=== PATIENT | female | born 1940 | race Two or more races ===

== ENCOUNTER 2017-07-03 10:00 | Outpatient (CLI) | payer MEDICARE, OTHER ==
[~2017-07-03 10:00] MED LIST: AMPH20TA3 PO; DULO30CA2 PO; GABA300C PO; ZOLP10TA2 PO
== END 2017-07-03 23:59 | disposition home or self-care (01) ==
LOC: WOU 10:00
PROVIDERS: ATTEND Specialist
DX: E11.52 Type 2 diabetes mellitus with diabetic peripheral angiopathy with gangrene (principal); E11.622 Type 2 diabetes mellitus with other skin ulcer; E11.42 Type 2 diabetes mellitus with diabetic polyneuropathy; L97.313 Non-pressure chronic ulcer of right ankle with necrosis of muscle; L97.811 Non-pressure chronic ulcer of other part of right lower leg limited to breakdown of skin; F17.210 Nicotine dependence, cigarettes, uncomplicated
CPT/HCPCS: A6402; A6452; G0463

== ENCOUNTER 2017-07-08 13:46 | Outpatient (CLI) | payer MEDICARE, OTHER ==
[2017-07-08 14:43] LABS: BASOPHILS % (AUTO) 0.7 % (0.0-2.0); EOSINOPHILS # (AUTO) 0.1 /CMM (0.0-0.7); EOSINOPHILS % (AUTO) 3.1 % (0.0-6.0); HEMATOCRIT 45 % (33-45); HEMOGLOBIN 14.9 g/dL (11.5-14.8); LYMPHOCYTES # (AUTO) 1.2 /CMM (0.8-4.8); LYMPHOCYTES % (AUTO) 26.3 % (20.0-44.0); MEAN CORPUSCULAR HEMOGLOBIN 34 PG (26.0-33.0); MEAN CORPUSCULAR HGB CONC 33 g/dl (31.0-36.0); MEAN CORPUSCULAR VOLUME 101 fL (82-100); MONOCYTES # (AUTO) 0.5 /CMM (0.1-1.30); MONOCYTES % (AUTO) 10.2 % (2.0-12.0); NEUTROPHILS # (AUTO) 2.9 /CMM (1.8-8.9); NEUTROPHILS % (AUTO) 59.7 % (43.0-81.0); PLATELET COUNT (AUTO) 256 /CMM (150-450); RDW COEFFICIENT OF VARIATION 13.1 (11.5-15.0); RED BLOOD CELL COUNT(AUTO) 4.44 MIL/uL (4.0-5.2); WHITE BLOOD COUNT (AUTO) 4.8 K/uL (4.3-11.0)
[2017-07-08 16:07] LABS: PREALBUMIN 21.9 MG/DL (18.0-35.7)
== END 2017-07-08 23:59 | disposition home or self-care (01) ==
LOC: LAB 13:46
PROVIDERS: ATTEND Specialist
DX: M86.9 Osteomyelitis, unspecified (principal)
CPT/HCPCS: 36415; 84134-TC; 85025-TC; 85652-TC; 86140-TC

== ENCOUNTER 2017-07-10 13:00 | Outpatient (CLI) | payer MEDICARE, OTHER | END 2017-07-10 23:59 | disposition home or self-care (01) | LOC: WOU 13:00 | PROVIDERS: ATTEND Specialist | DX: E11.622 Type 2 diabetes mellitus with other skin ulcer (principal); E11.52 Type 2 diabetes mellitus with diabetic peripheral angiopathy with gangrene; E11.42 Type 2 diabetes mellitus with diabetic polyneuropathy; L97.313 Non-pressure chronic ulcer of right ankle with necrosis of muscle; L97.812 Non-pressure chronic ulcer of other part of right lower leg with fat layer exposed; F17.210 Nicotine dependence, cigarettes, uncomplicated | CPT/HCPCS: 11042; A6402; A6452 ==

== ENCOUNTER 2017-07-24 10:50 | Outpatient (CLI) | payer MEDICARE, OTHER | END 2017-07-24 23:59 | disposition home or self-care (01) | LOC: WOU 10:50 | PROVIDERS: ATTEND Specialist | DX: E11.622 Type 2 diabetes mellitus with other skin ulcer (principal); L97.312 Non-pressure chronic ulcer of right ankle with fat layer exposed; E11.42 Type 2 diabetes mellitus with diabetic polyneuropathy; E11.51 Type 2 diabetes mellitus with diabetic peripheral angiopathy without gangrene; Z87.891 Personal history of nicotine dependence | CPT/HCPCS: 11042; A6402 ==

== ENCOUNTER 2017-07-31 10:15 | Outpatient (CLI) | payer MEDICARE, OTHER | END 2017-07-31 23:59 | disposition home or self-care (01) | LOC: WOU 10:15 | PROVIDERS: ATTEND Specialist | DX: E11.622 Type 2 diabetes mellitus with other skin ulcer (principal); L97.322 Non-pressure chronic ulcer of left ankle with fat layer exposed; E11.51 Type 2 diabetes mellitus with diabetic peripheral angiopathy without gangrene; E11.42 Type 2 diabetes mellitus with diabetic polyneuropathy; F17.210 Nicotine dependence, cigarettes, uncomplicated | CPT/HCPCS: A6209; A6402; G0463 ==

== ENCOUNTER 2017-08-07 13:30 | Outpatient (CLI) | payer MEDICARE, OTHER | END 2017-08-07 23:59 | disposition home or self-care (01) | LOC: WOU 13:30 | PROVIDERS: ATTEND Specialist | DX: E11.622 Type 2 diabetes mellitus with other skin ulcer (principal); L97.313 Non-pressure chronic ulcer of right ankle with necrosis of muscle; L97.812 Non-pressure chronic ulcer of other part of right lower leg with fat layer exposed; E11.51 Type 2 diabetes mellitus with diabetic peripheral angiopathy without gangrene; E11.42 Type 2 diabetes mellitus with diabetic polyneuropathy; T86.828 Other complications of skin graft (allograft) (autograft) | CPT/HCPCS: A6209; A6402; G0463 ==

== ENCOUNTER 2017-08-14 13:00 | Outpatient (CLI) | payer MEDICARE, OTHER | END 2017-08-14 23:59 | disposition home or self-care (01) | LOC: WOU 13:00 | PROVIDERS: ATTEND Specialist | DX: E11.622 Type 2 diabetes mellitus with other skin ulcer (principal); L97.313 Non-pressure chronic ulcer of right ankle with necrosis of muscle; E11.42 Type 2 diabetes mellitus with diabetic polyneuropathy; E11.51 Type 2 diabetes mellitus with diabetic peripheral angiopathy without gangrene; T86.828 Other complications of skin graft (allograft) (autograft); F17.210 Nicotine dependence, cigarettes, uncomplicated | CPT/HCPCS: A6402; G0463 ==

== ENCOUNTER 2017-08-16 14:29 | Outpatient (CLI) | payer MEDICARE, OTHER | END 2017-08-17 23:59 | disposition home or self-care (01) | LOC: RAD 14:29 | PROVIDERS: ATTEND Specialist | DX: I70.0 Atherosclerosis of aorta (principal); M47.894 Other spondylosis, thoracic region; R54 Age-related physical debility | CPT/HCPCS: 71046 ==

== ENCOUNTER 2017-08-28 11:15 | Outpatient (CLI) | payer MEDICARE, OTHER | END 2017-08-28 23:59 | disposition home or self-care (01) | LOC: WOU 11:15 | PROVIDERS: ATTEND Specialist | DX: T86.828 Other complications of skin graft (allograft) (autograft) (principal); E11.51 Type 2 diabetes mellitus with diabetic peripheral angiopathy without gangrene; E11.622 Type 2 diabetes mellitus with other skin ulcer; E11.42 Type 2 diabetes mellitus with diabetic polyneuropathy; L97.313 Non-pressure chronic ulcer of right ankle with necrosis of muscle | CPT/HCPCS: A6209; A6402; G0463 ==

== ENCOUNTER 2017-09-04 10:00 | Outpatient (CLI) | payer MEDICARE, OTHER | END 2017-09-04 23:59 | disposition home or self-care (01) | LOC: WOU 10:00 | PROVIDERS: ATTEND Specialist | DX: E11.622 Type 2 diabetes mellitus with other skin ulcer (principal); L97.313 Non-pressure chronic ulcer of right ankle with necrosis of muscle; L97.812 Non-pressure chronic ulcer of other part of right lower leg with fat layer exposed; E11.42 Type 2 diabetes mellitus with diabetic polyneuropathy; E11.51 Type 2 diabetes mellitus with diabetic peripheral angiopathy without gangrene; T86.828 Other complications of skin graft (allograft) (autograft); F17.210 Nicotine dependence, cigarettes, uncomplicated | CPT/HCPCS: A6209; A6402; G0463 ==

== ENCOUNTER 2017-09-11 10:15 | Outpatient (CLI) | payer MEDICARE, OTHER | END 2017-09-11 23:59 | disposition home or self-care (01) | LOC: WOU 10:15 | PROVIDERS: ATTEND Specialist | DX: E11.622 Type 2 diabetes mellitus with other skin ulcer (principal); L97.313 Non-pressure chronic ulcer of right ankle with necrosis of muscle; L97.812 Non-pressure chronic ulcer of other part of right lower leg with fat layer exposed; E11.51 Type 2 diabetes mellitus with diabetic peripheral angiopathy without gangrene; E11.42 Type 2 diabetes mellitus with diabetic polyneuropathy; T86.828 Other complications of skin graft (allograft) (autograft); F17.210 Nicotine dependence, cigarettes, uncomplicated | CPT/HCPCS: A6209; A6402; G0463 ==

== ENCOUNTER 2017-09-18 10:16 | Outpatient (CLI) | payer MEDICARE, OTHER | END 2017-09-18 23:59 | disposition home or self-care (01) | LOC: WOU 10:16 | PROVIDERS: ATTEND Specialist | DX: T86.828 Other complications of skin graft (allograft) (autograft) (principal); E11.622 Type 2 diabetes mellitus with other skin ulcer; L97.312 Non-pressure chronic ulcer of right ankle with fat layer exposed; L97.812 Non-pressure chronic ulcer of other part of right lower leg with fat layer exposed; E11.51 Type 2 diabetes mellitus with diabetic peripheral angiopathy without gangrene; E11.42 Type 2 diabetes mellitus with diabetic polyneuropathy | CPT/HCPCS: A6402; G0463 ==

== ENCOUNTER 2017-09-25 10:20 | Outpatient (CLI) | payer MEDICARE, OTHER | END 2017-09-25 23:59 | disposition home or self-care (01) | LOC: WOU 10:20 | PROVIDERS: ATTEND Specialist | DX: E11.622 Type 2 diabetes mellitus with other skin ulcer (principal); L97.312 Non-pressure chronic ulcer of right ankle with fat layer exposed; Z87.891 Personal history of nicotine dependence; E11.42 Type 2 diabetes mellitus with diabetic polyneuropathy; T86.828 Other complications of skin graft (allograft) (autograft); E11.51 Type 2 diabetes mellitus with diabetic peripheral angiopathy without gangrene | CPT/HCPCS: A6253; A6402 ×2; G0463 ==

== ENCOUNTER 2017-10-02 10:17 | Outpatient (CLI) | payer MEDICARE, OTHER | END 2017-10-02 23:59 | disposition home or self-care (01) | LOC: WOU 10:17 | PROVIDERS: ATTEND Specialist | DX: E11.622 Type 2 diabetes mellitus with other skin ulcer (principal); L97.312 Non-pressure chronic ulcer of right ankle with fat layer exposed; T86.828 Other complications of skin graft (allograft) (autograft); E11.42 Type 2 diabetes mellitus with diabetic polyneuropathy; E11.51 Type 2 diabetes mellitus with diabetic peripheral angiopathy without gangrene; Z87.891 Personal history of nicotine dependence | CPT/HCPCS: A6253; A6402; G0463 ==

== ENCOUNTER 2017-10-30 09:15 | Outpatient (CLI) | payer MEDICARE, OTHER | END 2017-10-30 23:59 | disposition home or self-care (01) | LOC: WOU 09:15 | PROVIDERS: ATTEND Specialist | DX: T86.828 Other complications of skin graft (allograft) (autograft) (principal); E11.622 Type 2 diabetes mellitus with other skin ulcer; L97.313 Non-pressure chronic ulcer of right ankle with necrosis of muscle; E11.42 Type 2 diabetes mellitus with diabetic polyneuropathy; E11.51 Type 2 diabetes mellitus with diabetic peripheral angiopathy without gangrene; Z87.891 Personal history of nicotine dependence | CPT/HCPCS: 11042; A6402 ==

== ENCOUNTER 2018-02-20 11:31 | Inpatient (IN) | payer MEDICARE, OTHER ==
[~2018-02-20] VITALS: Ht 170.2 cm; Wt 59.0 kg
--- NOTE | 2018-02-20 11:45 | NUR ---
PT SELF PRESENTS TO ER BED 17 C/O GENERALIZED WEAKNESS WORSENING X 5 DAYS NOW. STATES SHE FEELS DEHYDRATED. DENIES PAIN. PLACED ON MONITOR. VSS. AWAITING MD SEVILLA.
--- NOTE | 2018-02-20 11:48 | NUR ---
DR LOMBARDO AT BEDSIDE FOR EVAL.
[2018-02-20] MEDS ORDERED: IV NS 0.9% 1,000 ML BAG IV ONE (12:00)
[2018-02-20 12:09] LABS: BASOPHILS # (AUTO) 0.2 /CMM (0.0-0.2); BASOPHILS % (AUTO) 2.3 % (0.0-2.0); EOSINOPHILS % (AUTO) 0.4 % (0.0-6.0); HEMATOCRIT 56 % (33-45); LYMPHOCYTES # (AUTO) 1.1 /CMM (0.8-4.8); LYMPHOCYTES % (AUTO) 11.7 % (20.0-44.0); MEAN CORPUSCULAR HEMOGLOBIN 33 PG (26.0-33.0); MEAN CORPUSCULAR HGB CONC 35 g/dl (31.0-36.0); MEAN CORPUSCULAR VOLUME 96 fL (82-100); MONOCYTES # (AUTO) 0.8 /CMM (0.1-1.30); MONOCYTES % (AUTO) 8.3 % (2.0-12.0); NEUTROPHILS # (AUTO) 7.6 /CMM (1.8-8.9); NEUTROPHILS % (AUTO) 77.3 % (43.0-81.0); PLATELET COUNT (AUTO) 215 /CMM (150-450); RDW COEFFICIENT OF VARIATION 13.2 (11.5-15.0); RED BLOOD CELL COUNT(AUTO) 5.82 MIL/uL (4.0-5.2); WHITE BLOOD COUNT (AUTO) 9.7 K/uL (4.3-11.0)
[2018-02-20 12:11] LABS: HEMOGLOBIN 19.4 g/dL (11.5-14.8)
[2018-02-20 12:19] LABS: ALANINE AMINOTRANSFERASE 33 U/L (12-78); ALBUMIN 4.5 g/dL (3.4-5.0); ALKALINE PHOSPHATASE 77 U/L (46-116); ASPARTATE AMINOTRANSFERASE 21 U/L (15-37); BILIRUBIN,DIRECT 0.2 mg/dL (0.0-0.2); BILIRUBIN,TOTAL 0.9 mg/dL (0.2-1.0); CALCIUM, SERUM 10.8 mg/dL (8.5-10.1); CARBON DIOXIDE 23 mmol/L (21-32); CHLORIDE 88 mmol/L (98-107); CREATININE 1.6 mg/dL (0.6-1.3); GLUCOSE 145 mg/dL (74-106); LIPASE 473 U/L (73-393); POTASSIUM 4.3 mmol/L (3.5-5.1); SODIUM SERUM 123 mmol/L (136-145); TOTAL PROTEIN, SERUM 8.6 g/dL (6.4-8.2)
[2018-02-20 12:21] LABS: TROPONIN I < 0.017 ng/mL (0.00-0.056)
[2018-02-20 12:22] LABS: UREA NITROGEN, BLOOD 85 mg/dL (7-18)
[2018-02-20] MEDS ORDERED: PENT400T12 PO (12:38)
[2018-02-20] MEDS ORDERED: CALC500T52 PO (12:38)
[2018-02-20] MEDS ORDERED: MAGN125C PO (12:38)
[2018-02-20] MEDS ORDERED: CEVI30CA4 PO (12:38)
[2018-02-20] MEDS ORDERED: VITA-339 PO (12:38)
--- NOTE | 2018-02-20 12:41 | NUR ---
BED 109
--- NOTE | 2018-02-20 12:50 | NUR ---
PT STILL UNABLE TO PROVIDE URINE SAMPLE AT THIS TIME.
[2018-02-20 13:12] LABS: BAND % (MANUAL) 1 % (0.0-5.0); EOSINOPHILS % (MANUAL) 1 % (0-4); LYMPHOCYTES % (MANUAL) 7 % (16-48); MONOCYTES % (MANUAL) 10 % (0-11.0); NEUTROPHILS % (MANUAL) 81 (42-76)
[2018-02-20] MEDS ORDERED: IV NS 0.9% 1,000 ML IV PRN (13:19)
[2018-02-20] MEDS ORDERED: ZOLPIDEM TARTRATE 5 MG TABLET PO PRN (13:30)
[2018-02-20] MEDS ORDERED: LORAZEPAM 0.5 MG TABLET PO PRN (13:30)
[2018-02-20] MEDS ORDERED: INSULIN REGULAR, HUMAN 100 UNIT/ML 3 ML VIAL SQ PRN (13:30)
[2018-02-20] MEDS ORDERED: Z GUARD REMEDY 2 OZ OINT TP PRN (13:30)
[2018-02-20] MEDS ORDERED: ZOLPIDEM TARTRATE 10 MG TABLET PO PRN (13:30)
[2018-02-20] MEDS ORDERED: DEXTROSE 50%-WATER 50 ML DISP.SYRIN IV PRN (13:30)
[2018-02-20] MEDS ORDERED: MAG HYDROX/AL HYDROX/SIMETH 30 ML UDC PO PRN (13:30)
[2018-02-20] MEDS ORDERED: ONDANSETRON HCL/PF 4 MG/2 ML VIAL IVP PRN (13:30)
[2018-02-20] MEDS ORDERED: MAGNESIUM HYDROXIDE 30 ML UDC PO PRN (13:30)
[2018-02-20] MEDS ORDERED: ACETAMINOPHEN 325 MG TABLET PO PRN (13:30)
[2018-02-20] MEDS ORDERED: HYDROCODONE/APAP 5/325MG 1 EACH TABLET PO PRN (13:30)
--- NOTE | 2018-02-20 13:33 | NUR ---
REPORT TO ANAND WHITTEN. PT AWAITING TRANSFER TO FLOOR.
[2018-02-20 14:50] VITALS: BP 140/73
--- NOTE | 2018-02-20 14:50 | NUR ---
RN NOTES RECEIVED PT FROM ER IN ROOM 109 , TELE STATUS , PT A/Ox4, ON RA , O2 SAT 94%, RESPIRATION EVEN AND UNLABORED, NO SOB NOTED, PT UP TO THE BATHROOM WITH MINIMUM ASSIST , VOIDING WELL, URINE SENT TO THE LAB, ON TELE HR IN 70'S, SR , L AC IV SITE G 20 CDI, NS AT 150CC/HR STARTED. ULCER NOTED TO R INNER ANKLE , PICTURE TAKEN AND PLACED IN THE CHART, WOUND CONSULT ORDERED , SR UP x2, CALL LIGHT WITHIN EASY REACH, BED LOCKED AND IN LOWEST POSITION, CONTINUE TO MONITOR .
[2018-02-20 14:54] LABS: TROPONIN I < 0.017 ng/mL (0.00-0.056)
[2018-02-20 14:58] LABS: AMYLASE 79 U/L (25-115); LIPASE 703 U/L (73-393)
[2018-02-20] MEDS: IV NS 0.9% 1,000 ML IV PRN (15:05)
[2018-02-20 15:06] LABS: IRON, SERUM 151 ug/dl (50-175); TOTAL IRON BINDING CAPACITY 444 ug/dl (250-450)
[2018-02-20] MEDS: PENTOXIFYLLINE 400 MG TABLET.SA PO SCH (16:20)
[2018-02-20] MEDS: BLOOD SUGAR DIAGNOSTIC 1 EACH STRIP IN SCH ×2 (16:27→21:31)
[2018-02-20 17:00] VITALS: BP 142/75
--- NOTE | 2018-02-20 18:30 | NUR ---
RN NOTES PT REMAINS THE SAME , IVF NS AT 150CC/HR RUNNING VIA L AC IV SITE , TOLERATING DIET WELL, VSS STABLE , WILL ENDOSE TO [facility] SHIFT NURSE FOR CARLOS .
[2018-02-20 19:12] LABS: OSMOLALITY,SERUM 293 mOS/kg (278-305)
[2018-02-20 19:14] LABS: CREATINE KINASE MB 2.8 ng/mL (0-3.6); THYROID STIMULATING HORMONE 2.267 uIU/mL (0.358-3.74)
[2018-02-20 19:14] LABS: APPEARANCE,URINE CLEAR (CLEAR); BILIRUBIN,URINE NEGATIVE (NEGATIVE); BLOOD, URINE NEGATIVE Ery/uL (NEGATIVE); COLOR,URINE YELLOW (YELLOW); KETONES,URINE NEGATIVE (NEGATIVE); LEUKOCYTE ESTERASE ,URINE NEGATIVE (NEGATIVE); NITRITE, URINE NEGATIVE (NEGATIVE); PH,URINE 5.5 (5.0-8.0); PROTEIN,URINE TRACE mg/dl (NEGATIVE); UGLUCOSE NEGATIVE (NEGATIVE); URINE SODIUM, RANDOM < 5 mmol/l (40-220); UROBILINOGEN,URINE 0.2 EU/dL (0.2)
[2018-02-20 19:18] LABS: OSMOLALITY,URINE 599 mOS/kg (340-1090)
[2018-02-20 20:00] VITALS: BP 143/62
[2018-02-20 20:55] LABS: BACTERIA,URINE Few /HPF (None Seen); SQUAMOUS EPITHELIAL CELL,UR Few /HPF (None Seen)
[2018-02-21] VITALS: BP 132/63
[2018-02-21] MEDS: IV NS 0.9% 1,000 ML IV PRN ×3 (02:04→21:44)
[2018-02-21 04:00] VITALS: BP 134/61
--- NOTE | 2018-02-21 07:00 | NUR ---
RN NOTES RECEIVED PT ON BED, A/Ox4, ON RA , NO SOB NOTED, RESPIRATION EVEN AND UNLABORED, NO SOB NOTED , ON TELE SR HR IN LOW 60'S , NS AT 150CC/HR RUNNING VIA L AC IV SITE G 20 , SITE CDI, SR UP x3, CALL LIGHT WITHIN EASY REACH, BED LOCKED AND IN LOWEST POSITION , CONTINUE TO MONITOR CLSOELY.
[2018-02-21 07:11] LABS: BASOPHILS % (AUTO) 0.2 % (0.0-2.0); EOSINOPHILS % (AUTO) 1.4 % (0.0-6.0); HEMATOCRIT 48 % (33-45); HEMOGLOBIN 17.1 g/dL (11.5-14.8); LYMPHOCYTES # (AUTO) 1.5 /CMM (0.8-4.8); MEAN CORPUSCULAR HEMOGLOBIN 34 PG (26.0-33.0); MEAN CORPUSCULAR HGB CONC 36 g/dl (31.0-36.0); MEAN CORPUSCULAR VOLUME 96 fL (82-100); MONOCYTES # (AUTO) 0.9 /CMM (0.1-1.30); NEUTROPHILS # (AUTO) 4.1 /CMM (1.8-8.9); NEUTROPHILS % (AUTO) 62.4 % (43.0-81.0); PLATELET COUNT (AUTO) 173 /CMM (150-450); RDW COEFFICIENT OF VARIATION 12.9 (11.5-15.0); RED BLOOD CELL COUNT(AUTO) 5.03 MIL/uL (4.0-5.2); WHITE BLOOD COUNT (AUTO) 6.6 K/uL (4.3-11.0)
[2018-02-21 07:23] LABS: CALCIUM, SERUM 8.9 mg/dL (8.5-10.1); CARBON DIOXIDE 27 mmol/L (21-32); CHLORIDE 100 mmol/L (98-107); CREATININE 0.7 mg/dL (0.6-1.3); GLUCOSE 97 mg/dL (74-106); MAGNESIUM 2.4 mg/dL (1.8-2.4); PHOSPHORUS 2.7 mg/dL (2.5-4.9); POTASSIUM 3.5 mmol/L (3.5-5.1); SODIUM SERUM 135 mmol/L (136-145); UREA NITROGEN, BLOOD 44 mg/dL (7-18)
[2018-02-21 08:00] VITALS: BP 109/61
[2018-02-21] MEDS: BLOOD SUGAR DIAGNOSTIC 1 EACH STRIP IN SCH ×4 (08:25→21:46)
[2018-02-21] MEDS: PENTOXIFYLLINE 400 MG TABLET.SA PO SCH ×3 (10:13→16:45)
[2018-02-21 12:00] VITALS: BP_SYST 108; BP_SYST 128; BP_DIAS 54; BP_DIAS 59
--- NOTE | 2018-02-21 12:00 | NUR ---
RN NOTES PT STABLE , UP TO BATH ROOM , IVF NS @150CC/HR RUNNING VIA L FA IV SITE , NO DISTRESS NOTED, CONTINUE TO MONITOR.
[2018-02-21] MEDS: HYDROGEL DRESSING 90 GM TUBE TP SCH ×2 (13:00→21:43)
[2018-02-21 16:00] VITALS: BP 118/60
--- NOTE | 2018-02-21 18:21 | NUR ---
RN NOTES PT STABLE , NAIDA ANY DISTRESS AT THIS TIME, STATED WANTS TO GO HOME IN AM .WILL ENDOSE TO MEDICAL STAFF CREDENTIALING COORDINATOR NURSE FOR CARLOS.
[2018-02-21 20:00] VITALS: BP 113/56
--- NOTE | 2018-02-21 23:11 | NUR ---
RN NOTES CARE ENDORSED TO MARIA DOLORES DOMINGUEZ. PATIENT WITH NO ACUTE DISTRESS. CONTINUOUS ON IVF ORDERED. PATIENT IS AMBULATORY ADLIB WITH STEADY GAIT. PATIENT STATES OVERALL FEELING BETTER AND STRONGER, NO MORE TREMORS. ASSISTED WITH ADLS NEEDED. SAFETY AND COMFORT ENSURED. CALL LIGHT IN REACH. NEEDS ATTENDED.
[2018-02-22] VITALS: BP 103/52
[2018-02-22 04:00] VITALS: BP 130/59
[2018-02-22] MEDS: IV NS 0.9% 1,000 ML IV PRN (04:28)
[2018-02-22 05:43] VITALS: BP 130/59
--- NOTE | 2018-02-22 07:22 | NUR ---
TELE/RN NOTES: NO ACUTE CHANGES NOTED DURING THIS SHIFT. REPORT GIVEN TO AM NURSE FOR CARLOS.
--- NOTE | 2018-02-22 07:26 | NUR ---
PUFFER TENDER NOTES: RECEIVED PT ON BED ALERT AND AWAKE, VERBALLY RESPONSIVE. NO ACUTE DISTRESS NOTED. NO COMPLAINTS OF PAIN OR DISCOMFORT AT THIS TIME. BREATHING EVEN AND UNLABORED WITH NORMAL RESPIRATIONS. ON TELE MONITOR, SINUS JUNIOR HR 58. IV ON LFA G22 INTACT AND PATENT, WITH IVF NS RUNNING AT 150ML/HR, INFUSING WELL. KEPT CLEAN, DRY AND COMFORTABLE. CALL LIGHT WITHIN REACH. WILL CONTINUE TO MONITOR PT.
--- NOTE | 2018-02-22 07:30 | NUR ---
FIXED INCOME DIRECTOR NOTES: RECEIVED PT ON BED ASLEEP WITH HOB ELEVATED. NO APPARENT DISTRESS NOTED. NO FACIAL GRIMACING OR ANY SIGNS OF PAIN NOTED. NO SOB. ON [facility] VENT, SETTINGS ORDERED. GT INTACT AND PATENT, TOLERATING WELL. NO SIGNS OF ASPIRATION NOTED. ON TELE MONITOR V.PACING. KEPT CLEAN, DRY AND COMFORTABLE. SAFETY AND FALL PRECAUTIONS OBSERVED AND MAINTAINED. WILL CONTINUE TO MONITOR PT. Addendum: 02/22/18 at 1320 by HEIKE BRUNER RN THIS DOCUMENTATION IS NOT FOR THIS PT
[2018-02-22] MEDS: BLOOD SUGAR DIAGNOSTIC 1 EACH STRIP IN SCH ×2 (07:43→11:10)
[2018-02-22 08:00] VITALS: BP 112/51
[2018-02-22 08:00] LABS: CALCIUM, SERUM 8.5 mg/dL (8.5-10.1); CARBON DIOXIDE 24 mmol/L (21-32); CHLORIDE 107 mmol/L (98-107); CREATININE 0.5 mg/dL (0.6-1.3); GLUCOSE 90 mg/dL (74-106); PHOSPHORUS 1.9 mg/dL (2.5-4.9); POTASSIUM 3.7 mmol/L (3.5-5.1); SODIUM SERUM 139 mmol/L (136-145); UREA NITROGEN, BLOOD 18 mg/dL (7-18)
[2018-02-22] MEDS: PENTOXIFYLLINE 400 MG TABLET.SA PO SCH ×2 (08:13→12:10)
[2018-02-22] MEDS: HYDROGEL DRESSING 90 GM TUBE TP SCH (08:14)
[2018-02-22 09:51] LABS: HEMATOCRIT 46 % (33-45); HEMOGLOBIN 15.7 g/dL (11.5-14.8); MEAN CORPUSCULAR HEMOGLOBIN 34 PG (26.0-33.0); MEAN CORPUSCULAR HGB CONC 34 g/dl (31.0-36.0); MEAN CORPUSCULAR VOLUME 99 fL (82-100); RED BLOOD CELL COUNT(AUTO) 4.64 MIL/uL (4.0-5.2); WHITE BLOOD COUNT (AUTO) 5.1 K/uL (4.3-11.0)
[2018-02-22 09:52] LABS: BASOPHILS % (AUTO) 0.7 % (0.0-2.0); EOSINOPHILS % (AUTO) 2.4 % (0.0-6.0); LYMPHOCYTES # (AUTO) 1.3 /CMM (0.8-4.8); LYMPHOCYTES % (AUTO) 24.7 % (20.0-44.0); MONOCYTES % (AUTO) 13.8 % (2.0-12.0); NEUTROPHILS % (AUTO) 58.4 % (43.0-81.0); PLATELET COUNT (AUTO) 170 /CMM (150-450); RDW COEFFICIENT OF VARIATION 13.6 (11.5-15.0)
[2018-02-22 09:53] LABS: MONOCYTES # (AUTO) 0.7 /CMM (0.1-1.30)
[2018-02-22] MEDS ORDERED: K PHOS NEUTRAL 250 MG TABLET PO ONE (11:00)
[2018-02-22 12:00] VITALS: BP 128/65
--- NOTE | 2018-02-22 15:12 | NUR ---
ENDBAND SIZER NOTES: PATIENT WAS DISCHARGED HOME, IN STABLE CONDITION. NO ACUTE DISTRESS NOTED. NO SOB NOTED. IV ON LFA AND LEFT AC WAS REMOVED. BELONGINGS LIST DONE. PICTURES TAKEN AND PLACED ON CHART.
== END 2018-02-22 14:50 | disposition home or self-care (01) | DRG 683 ==
LOC: ER 11:32 → TELE1 12:53
PROVIDERS: ADMIT Internal Medicine; ATTEND Internal Medicine
DX: N17.0 Acute kidney failure with tubular necrosis (principal); E87.1 Hypo-osmolality and hyponatremia; E86.0 Dehydration; Z90.710 Acquired absence of both cervix and uterus; F17.210 Nicotine dependence, cigarettes, uncomplicated; R53.1 Weakness; R25.2 Cramp and spasm; I87.2 Venous insufficiency (chronic) (peripheral); L84 Corns and callosities; F41.9 Anxiety disorder, unspecified; E11.40 Type 2 diabetes mellitus with diabetic neuropathy, unspecified; L90.8 Other atrophic disorders of skin; E78.5 Hyperlipidemia, unspecified; K21.9 Gastro-esophageal reflux disease without esophagitis
CPT/HCPCS: 36415; 71045-TC; 80048-TC; 80076-TC; 81000-TC; 82150-TC; 82550-TC; 82553-TC; 82746; 82962-TC; 83540-TC; 83605-TC; 83690-TC; 83735-TC; 83935-TC; 84100-TC; 84300-TC; 84443-TC; 84484-TC; 85025-TC; 87081-TC; 87086-TC; 93307-TC; A4606; A6248; A6403; J1815; J7030; Z7610

== ENCOUNTER 2018-02-24 13:14 | Outpatient (CLI) | payer MEDICARE, OTHER ==
[~2018-02-24 13:14] MED LIST changes: +CALC500T52 PO; +CEVI30CA4 PO; +MAGN125C PO; +PENT400T12 PO; +VITA-339 PO
[2018-02-24 13:19] VITALS: BP 123/66
== END 2018-02-24 23:59 | disposition home or self-care (01) ==
LOC: MSC 13:14
PROVIDERS: ATTEND Internal Medicine
DX: Z09 Encounter for follow-up examination after completed treatment for conditions other than malignant neoplasm (principal); E11.622 Type 2 diabetes mellitus with other skin ulcer; L97.809 Non-pressure chronic ulcer of other part of unspecified lower leg with unspecified severity; J44.9 Chronic obstructive pulmonary disease, unspecified; F17.200 Nicotine dependence, unspecified, uncomplicated; F41.8 Other specified anxiety disorders; G62.9 Polyneuropathy, unspecified; Z79.899 Other long term (current) drug therapy

== ENCOUNTER 2018-09-30 13:00 | Outpatient (CLI) | payer MEDICARE, OTHER ==
[~2018-09-30 13:00] MED LIST changes: -DULO30CA2 PO; -GABA300C PO
== END 2018-09-30 23:59 | disposition home or self-care (01) ==
LOC: VASLAB 13:00
PROVIDERS: ATTEND Surgery Vascular Surgery
DX: I73.9 Peripheral vascular disease, unspecified (principal); S91.001D Unspecified open wound, right ankle, subsequent encounter; X58.XXXD Exposure to other specified factors, subsequent encounter
CPT/HCPCS: A6402; G0463

== ENCOUNTER 2018-10-28 13:15 | Outpatient (CLI) | payer MEDICARE, OTHER | END 2018-10-28 23:59 | disposition home or self-care (01) | LOC: VASLAB 13:15 | PROVIDERS: ATTEND Surgery Vascular Surgery | DX: I73.9 Peripheral vascular disease, unspecified (principal); S91.001D Unspecified open wound, right ankle, subsequent encounter; Z88.6 Allergy status to analgesic agent; X58.XXXD Exposure to other specified factors, subsequent encounter | CPT/HCPCS: G0463 ==

== ENCOUNTER 2019-05-26 13:30 | Outpatient (CLI) | payer MEDICARE, OTHER ==
[~2019-05-26 13:30] MED LIST changes: -PENT400T12 PO; +PENT400T17 PO
== END 2019-05-26 23:59 | disposition home or self-care (01) ==
LOC: VASLAB 13:30
PROVIDERS: ATTEND Surgery Vascular Surgery
DX: I73.9 Peripheral vascular disease, unspecified (principal)
CPT/HCPCS: G0463

== ENCOUNTER 2019-06-17 11:00 | Outpatient (CLI) | payer MEDICARE, OTHER | END 2019-06-17 23:59 | disposition home or self-care (01) | LOC: WOU 11:00 | PROVIDERS: ATTEND Specialist | DX: Z09 Encounter for follow-up examination after completed treatment for conditions other than malignant neoplasm (principal); E11.51 Type 2 diabetes mellitus with diabetic peripheral angiopathy without gangrene; M41.27 Other idiopathic scoliosis, lumbosacral region; E11.40 Type 2 diabetes mellitus with diabetic neuropathy, unspecified | CPT/HCPCS: G0463 ==

== ENCOUNTER 2019-11-02 11:48 | Emergency (ER) | payer MEDICARE, OTHER ==
[~2019-11-02] VITALS: Ht 165.1 cm; Wt 64.9 kg
[2019-11-02] MEDS ORDERED: ETOMIDATE 2 MG/ML VIAL IV ONE ×2 (11:49→12:30)
--- NOTE | 2019-11-02 11:55 | NUR ---
BIB ra, was found altered on floor of apartment. Patient makes minimal move with hands. Unarousable at this time. Unable to obtain SPO2. Dr. Guillermo at bedside for eval with contact/droplet precaution. RT paged, preparing for intubation.
[2019-11-02] MEDS ORDERED: PROPOFOL 100 ML ONE (12:00)
--- NOTE | 2019-11-02 12:00 | NUR ---
RT RECD PT VIA EMS POSSIBLE COVID INTUBATED WITH 7.5 25 AT LIP POSITIVE COLOR CHANGED ON C02 EQUAL BILATERAL BREATH SOUNDS WITH MD SEALS SECURED AIRWAY PLACED ON [facility] VENT WITH FOLLOWING SETTINGS ALARMS ON AND AUDIBLE BAG AND MASK AT [facility], WILL CONT TO MONITOR
--- NOTE | 2019-11-02 12:10 | NUR ---
Intubation done, ET tube size 7.5cm, 23cm on the lip. Ng tube inserted.
[2019-11-02] MEDS ORDERED: IV NS 0.9% 1,000 ML BAG IV ONE ×2 (12:30→17:30)
[2019-11-02 12:36] LABS: BASOPHILS % (AUTO) 0.2 % (0.0-2.0); EOSINOPHILS % (AUTO) 0.1 % (0.0-6.0); HEMATOCRIT 56 % (33-45); HEMOGLOBIN 17.6 g/dL (11.5-14.8); LYMPHOCYTES # (AUTO) 0.5 /CMM (0.8-4.8); LYMPHOCYTES % (AUTO) 3.6 % (20.0-44.0); MEAN CORPUSCULAR HGB CONC 32 g/dl (31.0-36.0); MEAN CORPUSCULAR VOLUME 105 fL (82-100); MONOCYTES # (AUTO) 1.3 /CMM (0.1-1.30); MONOCYTES % (AUTO) 10.2 % (2.0-12.0); NEUTROPHILS % (AUTO) 85.9 % (43.0-81.0); WHITE BLOOD COUNT (AUTO) 12.8 K/uL (4.3-11.0)
[2019-11-02 12:47] LABS: APPEARANCE,URINE Slightly Cloudy (CLEAR); BILIRUBIN,URINE SMALL (NEGATIVE); BLOOD, URINE Trace-intact Ery/uL (NEGATIVE); COLOR,URINE Dark (YELLOW); KETONES,URINE Negative (NEGATIVE); LEUKOCYTE ESTERASE ,URINE Negative (NEGATIVE); NITRITE, URINE Negative (NEGATIVE); PROTEIN,URINE 100 mg/dl (NEGATIVE); UGLUCOSE Negative (NEGATIVE); UROBILINOGEN,URINE 0.2 EU/dL (0.2)
--- NOTE | 2019-11-02 12:48 | NUR ---
CALLED [facility]
--- NOTE | 2019-11-02 12:48 | NUR ---
PROPOFOL STARTED AT 5MCG.KG.MIN
[2019-11-02 12:51] LABS: ABG BASE EXCESS -15.7 mmol/L; ABG OXYGEN SATURATION 99.3 % (92.0-98.5); ABG PCO2 29.4 mmHg (35.0-45.0); ABG PH 7.188 (7.350-7.450); ABG PO2 389.5 mmHg (75.0-100.0); AaDO2 294.1 mmHg; COHb 0.4 % (0.5-1.5); MetHb 0.6 % (0.0-1.5); O2Hb 98.3 % (94.0-97.0); PEEP,BG 5 cm H2O; SITE, ABG Right Radial; VT, ABG 600 mL
[2019-11-02 12:51] LABS: BACTERIA,URINE Few /HPF (None Seen); SQUAMOUS EPITHELIAL CELL,UR Moderate /HPF (None Seen)
[2019-11-02 12:52] LABS: URINE AMORPHOUS URATE Few /HPF (None Seen)
--- NOTE | 2019-11-02 13:05 | NUR ---
PROPOFOL DISCONTINUED DUE TO LOW BLOOD PRESSURE. DR SEALS AWARE
--- NOTE | 2019-11-02 13:10 | NUR ---
PATIENT'S ON MIGUELANGEL. SOFT RESTRAINT.
[2019-11-02] MEDS ORDERED: UMEC62.5 INH (13:12)
[2019-11-02] MEDS ORDERED: DEXT20TA6 PO (13:12)
[2019-11-02 13:17] LABS: BAND % (MANUAL) 5 % (0.0-5.0); LYMPHOCYTES % (MANUAL) 3 % (16-48); MONOCYTES % (MANUAL) 10 % (0-11.0); NEUTROPHILS % (MANUAL) 82 (42-76)
[2019-11-02 13:18] LABS: PLATELET COUNT (AUTO) 164 /CMM (150-450)
--- NOTE | 2019-11-02 13:25 | NUR ---
ICU BED 255
[2019-11-02] MEDS ORDERED: Z GUARD REMEDY 2 OZ OINT TP PRN (13:30)
[2019-11-02] MEDS ORDERED: ZOLPIDEM TARTRATE 5 MG TABLET PO PRN (13:30)
[2019-11-02] MEDS ORDERED: MAG HYDROX/AL HYDROX/SIMETH 30 ML UDC PO PRN (13:30)
[2019-11-02] MEDS ORDERED: ACETAMINOPHEN 325 MG TABLET PO PRN (13:30)
[2019-11-02] MEDS ORDERED: IV D5/0.45 NACL 1,000 ML IV PRN (13:30)
[2019-11-02] MEDS ORDERED: ONDANSETRON HCL/PF 4 MG/2 ML VIAL IVP PRN (13:30)
[2019-11-02] MEDS ORDERED: MAGNESIUM HYDROXIDE 30 ML UDC PO PRN (13:30)
[2019-11-02] MEDS ORDERED: HYDROCODONE/APAP 5/325MG 1 EACH TABLET PO PRN (13:30)
--- NOTE | 2019-11-02 13:42 | NUR ---
CALLED [facility] [phone]
--- NOTE | 2019-11-02 13:53 | NUR ---
scarlet kramer mgr [phone] fax clinicals
--- NOTE | 2019-11-02 13:56 | NUR ---
covid swab sent to lab.
[2019-11-02] MEDS ORDERED: PROPOFOL 100 ML IV PRN (14:00)
[2019-11-02 15:10] LABS: SALICYLATE 1.8 mg/dL (2.8-20.0)
[2019-11-02 15:13] LABS: SERUM AMMONIA 141 umol/L (11-32)
[2019-11-02 15:15] LABS: ALBUMIN 2.7 g/dL (3.4-5.0); ALKALINE PHOSPHATASE 69 U/L (46-116); BILIRUBIN,TOTAL 2.3 mg/dL (0.2-1.0); CALCIUM, SERUM 8.2 mg/dL (8.5-10.1); CARBON DIOXIDE 13 mmol/L (21-32); CHLORIDE 105 mmol/L (98-107); CREATININE 4.1 mg/dL (0.6-1.3); GLUCOSE 98 mg/dL (74-106); SODIUM SERUM 141 mmol/L (136-145); TOTAL PROTEIN, SERUM 6.3 g/dL (6.4-8.2)
[2019-11-02 15:17] LABS: POTASSIUM 7.4 mmol/L (3.5-5.1); UREA NITROGEN, BLOOD 84 mg/dL (7-18)
[2019-11-02 15:31] LABS: ALCOHOL, BLOOD < 3 mg/dL (0-0)
[2019-11-02 16:07] LABS: ALANINE AMINOTRANSFERASE 7823 U/L (12-78)
[2019-11-02 16:29] LABS: ASPARTATE AMINOTRANSFERASE 3404 U/L (15-37)
[2019-11-02 16:31] LABS: THYROID STIMULATING HORMONE 4.972 uIU/mL (0.358-3.74)
[2019-11-02 16:47] LABS: CALCIUM, SERUM 8.3 mg/dL (8.5-10.1); CARBON DIOXIDE 16 mmol/L (21-32); CHLORIDE 103 mmol/L (98-107); CREATININE 4.2 mg/dL (0.6-1.3); GLUCOSE 111 mg/dL (74-106); SODIUM SERUM 141 mmol/L (136-145)
[2019-11-02 16:49] LABS: UREA NITROGEN, BLOOD 89 mg/dL (7-18)
[2019-11-02] MEDS ORDERED: ALBUTEROL FS 2.5 MG/3 ML VIAL.NEB NEB ONE (17:00)
[2019-11-02] MEDS ORDERED: INSULIN REGULAR, HUMAN 100 UNIT/ML 10 ML VIAL IV ONE (17:00)
[2019-11-02] MEDS ORDERED: SODIUM BICARBONATE SYR 50 MEQ/50 ML DISP.SYRIN IV ONE (17:00)
[2019-11-02] MEDS ORDERED: Calcium Gluconate 1GM/10ML 4.65 MEQ in IV NS 0.9% 100 ML IV ONE (17:00)
[2019-11-02] MEDS ORDERED: DEXTROSE 50%-WATER 50 ML DISP.SYRIN IV ONE (17:00)
[2019-11-02] MEDS ORDERED: SODIUM BICARBONATE SYR 50 MEQ/50 ML DISP.SYRIN ONE (17:05)
[2019-11-02] MEDS ORDERED: Calcium Gluconate 0.465 MEQ/ML VIAL IV ONE (17:05)
[2019-11-02] MEDS ORDERED: DEXTROSE 50%-WATER 50 ML DISP.SYRIN ONE ×2 (17:05→17:46)
[2019-11-02] MEDS ORDERED: INSULIN REGULAR, HUMAN 100 UNIT/ML 10 ML VIAL ONE (17:06)
[2019-11-02] MEDS ORDERED: ALBUTEROL FS 2.5 MG/3 ML VIAL.NEB ONE (17:14)
--- NOTE | 2019-11-02 17:41 | NUR ---
JOSE CALLS FROM TRANSFER [facility]. ROOM [id number] CALL [phone] X [phone] PRN WILL BE HERE AT 1030. ACCEPTING MD IS DANE.
[2019-11-02 17:44] VITALS: BP 91/55
[2019-11-02] MEDS ORDERED: PIPERACILLIN /TAZOBACTAM 2.25 G in IV D5W 50 ML IV ONE (18:00)
[2019-11-02] MEDS ORDERED: VANCOMYCIN 1 GM in IV D5W 250 ML IV ONE (18:00)
--- NOTE | 2019-11-02 18:24 | NUR ---
REPORT GIVEN TO MICHELLE WHITTEN AT [facility]. AND TO [facility] RN.
[2019-11-02] MEDS ORDERED: PROTHROMBIN COMPLEX CONCENTR IV ONE (18:30)
[2019-11-02] MEDS ORDERED: WATER FOR INJECTION STERILE IV ONE (18:30)
[2019-11-02] MEDS ORDERED: PROTHROMBIN COMPLEX CONCENTR 500 UNIT VIAL IV ONE (18:30)
--- NOTE | 2019-11-02 18:50 | NUR ---
PATIENT LEFT THE FACILITY AND TRANSFERRED TO [facility]. NO DISTRESS NOTED. NEEDS ATTENDED. KEPT COMFORTABLE.
[2019-11-02] MEDS ORDERED: PHYTONADIONE INJ 10 MG in IV D5W 50 ML IV ONE (19:00)
== END 2019-11-02 19:03 | disposition short-term general hospital (02) ==
LOC: ER 11:48 → UNDOADMIN 12:55 → ICU 12:55 → ER 19:03
DX: K72.90 Hepatic failure, unspecified without coma (principal); I62.9 Nontraumatic intracranial hemorrhage, unspecified; J96.00 Acute respiratory failure, unspecified whether with hypoxia or hypercapnia; E86.0 Dehydration; N17.9 Acute kidney failure, unspecified; E87.5 Hyperkalemia; R65.21 Severe sepsis with septic shock; M62.82 Rhabdomyolysis; F15.10 Other stimulant abuse, uncomplicated; E03.9 Hypothyroidism, unspecified; D68.9 Coagulation defect, unspecified
CPT/HCPCS: 31500; 36415; 36600 ×2; 51702; 70450; 71045; 72125; 80048 ×2; 80076; 80305; 80307; 80329; 81001; 82140; 82550; 82803; 83605 ×2; 83615; 84145; 84443; 84484 ×2; 85025; 85378; 85730; 86140; 87040 ×2; 87077; 87081; 87086; 87186 ×3; 87635; 93005; 94644; 96361; 96365; 96367; 96368; 96372; 99082; 99152; 99291; A4217; C9132; J0610 ×2; J1815; J2543; J3370; J3430; J3490 ×4; J7030 ×4; J7040; J7060 ×3; 81000-TC; G0480; G0500; U0002